=== PATIENT | female | born 1990 | race American Indian/Alaskan Native ===

== ENCOUNTER 2021-01-05 19:46 | Emergency (ER) | payer OTHER, MEDICAID ==
[2021-01-05 19:59] VITALS: BP 114/73
[2021-01-05 20:37] LABS: Basophils # (Auto) 0.1 K/mm3 (0.0-0.1); Eosinophils # (Auto) 0.1 K/mm3 (0.0-0.4); Eosinophils % (Auto) 1.3 % (0.0-4.3); Hematocrit 35.6 % (30.3-42.9); Lymphocytes % (Auto) 22.9 % (13.4-35.0); Mean Corpuscular HGB Conc 34 % (30-34); Mean Corpuscular Volume 84 fl (79-97); Monocytes # (Auto) 0.8 K/mm3 (0.0-0.8); Monocytes % (Auto) 8.6 % (0.0-7.3); Platelet Count 259 K/mm3 (140-440); Red Blood Count 4.27 M/mm3 (3.65-5.03); Red Cell Distribution Width 12.6 % (13.2-15.2)
--- NOTE | 2021-01-05 20:42 | XRay Report ---
CHEST 2 VIEWS INDICATION / CLINICAL INFORMATION: Shortness of breath. COMPARISON: None available. FINDINGS: SUPPORT DEVICES: None. HEART / MEDIASTINUM: No significant abnormality. LUNGS / PLEURA: No significant pulmonary or pleural abnormality. No pneumothorax. ADDITIONAL FINDINGS: No significant additional findings. IMPRESSION: 1. No acute findings. Signer Name: Curtis Mistry MD Signed: 01/05/2021 8:37 PM Workstation Name: [id number]
[2021-01-05 20:44] LABS: Alanine Aminotransferase 15 units/L (7-56); Albumin 4.8 g/dL (3.9-5); BUN/Creatinine Ratio 19; Blood Urea Nitrogen 15 mg/dL (7-17); Calcium 9.1 mg/dL (8.4-10.2); Hemolysis Index 5
[2021-01-05 20:46] LABS: Basophils % (Auto) 0.7 % (0.0-1.8)
--- NOTE | 2021-01-06 21:45 | Electrocardiograph Report ---
[facility] Test Date: 2021-01-05 Test Time: 19:55:31 Pat Name: MARYANA MERRITT Department: Room: Gender: F Information And Referral Director: ÁNGEL : [id number] Requested By: BRADLEY SEAMAN Order Number: [id number] Reading MD: Carroll Short Measurements Intervals [place] Rate: 98 P: 68 [place]: 157 QRS: 30 QRSD: 79 T: 30 QT: 335 QTc: 428 Interpretive Statements Sinus rhythm Probable left atrial enlargement Low voltage, precordial leads Nonspecific diffuse ST segment abnormalities No previous ECG available for comparison Electronically Signed On 01-06-2021 21:44:54 EDT by Carroll Short
== END 2021-01-05 20:00 | disposition left against medical advice (07) ==
LOC: ED 19:46
DX: R07.89 Other chest pain (principal); Z53.21 Procedure and treatment not carried out due to patient leaving prior to being seen by health care provider
CPT/HCPCS: 36415; 71046; 80053; 84484; 84703; 85025; 93005